=== PATIENT | female | born 1990 | race Caucasian/White ===

== ENCOUNTER 2021-05-18 06:01 | Day surgery (SDC) | payer OTHER ==
[~2021-05-18] VITALS: Ht 154.9 cm; Wt 85.0 kg
[~2021-05-18 06:01] MED LIST: ACETAMINOPHEN *IV* 1,000 MG IV ONE; GABAPENTIN 300 MG CAP PO ONE; LIDOCAINE 1% MDV 20ML VIAL SQ PRN; LR 1,000 ML IV ONE; OMEP40CA4 PO; SCOPOLAMINE 1MG TRANSDERMAL PATCH TOP ONE; ceFAZolin SOD 2 GM in IV 1 EA IV ONE
[2021-05-18 06:38] LABS: HEMATOCRIT 34.2 % (36.0-47.0); HEMOGLOBIN 10.8 g/dl (12.0-15.5); MEAN CORPUSCULAR HEMOGLOBIN 24.3 pg (27.0-33.0); MEAN CORPUSCULAR HGB CONC 31.6 g/dl (32.0-36.5); PLATELET COUNT, AUTOMATED 343 10^3/uL (150-450); RED BLOOD COUNT 4.44 10^6/uL (4.00-5.40); WHITE BLOOD COUNT 8.7 10^3/uL (4.0-10.0)
[2021-05-18 07:06] LABS: ALBUMIN 3.5 GM/DL (3.2-5.2); ALT/SGPT 19 U/L (12-78); BILIRUBIN,TOTAL 0.2 MG/DL (0.2-1.0); BLOOD UREA NITROGEN 15 MG/DL (7-18); CALCIUM LEVEL 8.8 MG/DL (8.5-10.1); CARBON DIOXIDE LEVEL 23 MEQ/L (21-32); CHLORIDE LEVEL 107 MEQ/L (98-107); CREATININE FOR GFR 0.66 MG/DL (0.55-1.30); GLOMERULAR FILTRATION RATE > 60.0 (>60); GLUCOSE, FASTING 107 MG/DL (70-100); POTASSIUM SERUM 4.2 MEQ/L (3.5-5.1); SODIUM LEVEL 136 MEQ/L (136-145); TOTAL PROTEIN 7.6 GM/DL (6.4-8.2)
[2021-05-18] MEDS ORDERED: LIDOCAINE W/EPINEPHRINE 1% 20ML VIAL As Ordered ONE (07:12)
[2021-05-18] MEDS ORDERED: ONDANSETRON 4MG/2ML VIAL As Ordered ONE (07:14)
[2021-05-18] MEDS ORDERED: propofoL 200 MG/20 ML VIAL As Ordered ONE (07:14)
[2021-05-18] MEDS ORDERED: METOCLOPRAMIDE INJ 10MG/2ML VIAL (J2765 PER 1) As Ordered ONE (07:14)
[2021-05-18] MEDS ORDERED: ROCURONIUM BROMIDE 50 MG/5 ML VIAL As Ordered ONE (07:14)
[2021-05-18] MEDS ORDERED: dexameTHASONE 4 MG/ML 1ML VIAL (J1100 PER 1MG) As Ordered ONE (07:14)
[2021-05-18] MEDS ORDERED: LIDOCAINE 2% 100MG/5ML SDV (FOR ANES.) As Ordered ONE (07:14)
[2021-05-18] MEDS ORDERED: MIDAZOLAM INJ 2MG/2ML VIAL (J2250 PER 1MG) As Ordered ONE (07:15)
[2021-05-18] MEDS ORDERED: fentaNYL 100 MCG/2 ML INJECTION (J3010) As Ordered ONE (07:15)
[2021-05-18] MEDS ORDERED: HYDROmorphone HCL 2 MG/ML 1ML VIAL (J1170) As Ordered ONE (08:31)
[2021-05-18] MEDS ORDERED: ACETAMINOPHEN 1000MG 100ML IV BTL (OFIRMEV) (J0131 PER 10MG) As Ordered ONE (09:02)
[2021-05-18] MEDS ORDERED: oxyCODONE 5MG TAB PO PRN ×2 (10:15→10:20)
[2021-05-18] MEDS ORDERED: fentaNYL 100 MCG/2 ML INJECTION (J3010) IV PRN (10:15)
[2021-05-18] MEDS ORDERED: ONDANSETRON 4MG/2ML VIAL IV PRN (10:15)
[2021-05-18] MEDS ORDERED: MEPERIDINE INJ 25 MG/ML VIAL (J2175) IV PRN (10:15)
[2021-05-18] MEDS ORDERED: METOCLOPRAMIDE INJ 10MG/2ML VIAL (J2765 PER 1) IV PRN (10:15)
[2021-05-18] MEDS ORDERED: LR 1,000 ML IV SCH (10:15)
--- NOTE | 2021-05-18 10:18 | ROOPDOC ---
[facility] Report Of Operation Report of Operation DATE OF PROCEDURE: 05/18/21 PREPROCEDURE DIAGNOSES: heavy menstrual bleeding, uterine prolapse, perineal body defect POSTPROCEDURE DIAGNOSES: same PROCEDURE PERFORMED: total vaginal hysterectomy, modified mccalls culdoplasty, cystoscopy, perineorrhoraphy SURGEON: Dre Lozoya DO PRIVATE ADVISOR: Mery Short MD ANESTHESIA: general ESTIMATED BLOOD LOSS: Approximately 100 mL. COMPLICATIONS: none REMARKS: none FINDINGS: normal external genitalia, normal uterus and cervix, uterine prolapse noted, vaginal hysterectomy performed, fallopian tubes were surgically truncated, fimbriae were unable to be visualized for resection, bilateral ureters with brisk flow following the procedure and bladder without trauma, preineal body defect appreciated, perineorrhoraphy performed SPECIMENS REMOVED: uterus and cervix PROCEDURE NOTE: The risks, benefits, and alternatives of the procedure were discussed and written consent obtained. Pre-operative the patient received 2g ancef, scopolamine, gabapentin, and tylenol. She was taken to the OR and placed under general anesthesia. She was positioned in low lithotomy with the yellow fins and her arms out. The vagina and perineum were prepped and draped in a sterile fashion. A jiménez was placed in the bladder. A final time out was performed. A weighted speculum was placed and the cervix grasped with Nunez tenaculum. The cervicovaginal junction was injected circumferentially with 1% lidocaine with epinephrine. The junction was then incised with the bovie. The posterior vagina mucosal lip was elevated and the curved alexander scissors used to incise the posterior peritoneum. Intraabdominal entry was confirmed and no adhesions palpated. A duck bill speculum was placed. The anterior mucosal edge was elevated and attempt was made to enter the anterior peritoneum but it was too far posterior due to bladder prolapse. The bilateral uterosacral ligaments were grasped with koker clamps, cut, and tied with 0-vicryl. The bladder was then dissected further from the anterior uterus. The bilateral uterine arteries were then clamped, cauterized, and cut with the ligasure impact. The bilateral broad ligaments were also transected with the ligasure impact. The peritoneal reflection was then evident anteriorly and the Metzenbaum scissors were used to open the peritoneum and a retractor was placed. Intraabdominal entry was confirmed and there were no adhesions. The broad ligaments were further transsected followed by the bilateral uterosacral and uteroovarian ligaments with the ligasure. The uterus was removed. Small segments of fallopian tubes could be visualized on the specimen but the fimbriae were not visible. The ovaries were notably high and behind protruding bowel and visualization was difficult. Reinforcement figure of 8 stitches with 0-vicryl were placed on the bilateral side wall dissection sites for hemostasis. The surgical sites were hemostatic. A modified McCalls Culdoplasty was performed with 0-PDS with notable improvement in apical prolapse. A cystoscopy was performed and the bilateral ureters had brisk flow and there was no bladder trauma. The bladder was drained. The cuff mucosa was closed with 0-vicryl in a running fashion. Cystoscopy was repeated and had no changes. The bladder was drained. The cuff was palpated and had no defects. It was hemostatic. The perineal defect was identified and a elmer shaped area was clamped with Nanci clamps. The area was injected with 1% lidocaine with epinephrine for hydrodissection. The mucosa and perineal skin was removed via blunt dissection and with the Metzenbaum scissors. A crown stitch was performed to reapproximate the perineal body with good resulting support. Plication of the rectovaginal fascia was performed via 3x interrupted stitches with 0-vicryl. The mucosa and skin were then closed with 2-0 monocryl. The surgical site was hemostatic. The sponge, lap and needle counts were correct. There were no complications. The patient was transferred to recovery in stable condition. DRE LOZOYA DO May 18, 2021 10:18
[2021-05-18] MEDS ORDERED: IBUPROFEN 600MG TAB PO SCH (12:00)
[2021-05-18 12:50] VITALS: BP 117/66
[2021-05-18] MEDS ORDERED: KETOROLAC 60MG 2ML VIAL As Ordered ONE (12:53)
[2021-05-18] MEDS ORDERED: SUGAMMADEX SODIUM 500 MG/5 ML VIAL (BRIDION) As Ordered ONE (12:53)
[2021-05-18] MEDS ORDERED: ACETAMINOPHEN 500 MG TAB PO SCH (15:00)
== END 2021-05-18 13:00 | disposition home or self-care (01) ==
LOC: M SDC 06:01
PROVIDERS: ATTEND Obstetrics & Gynecology
DX: N85.00 Endometrial hyperplasia, unspecified (principal); Z88.2 Allergy status to sulfonamides; Z91.040 Latex allergy status; Z79.899 Other long term (current) drug therapy
CPT/HCPCS: 36415; 57260; 58260; 80053; 85027; 86850; 86900; 86901; 88307; J0131; J0690; J1100; J1170; J1885; J2250; J2405; J2765; J3010

== ENCOUNTER 2022-03-01 22:28 | Emergency (ER) | payer OTHER ==
[~2022-03-01] VITALS: Ht 154.9 cm; Wt 78.5 kg
[~2022-03-01 22:28] MED LIST changes: -ACETAMINOPHEN *IV* 1,000 MG IV ONE; +BENZ200C70 PO; -GABAPENTIN 300 MG CAP PO ONE; -LIDOCAINE 1% MDV 20ML VIAL SQ PRN; -LR 1,000 ML IV ONE; +ONDA4TAB6 PO; -SCOPOLAMINE 1MG TRANSDERMAL PATCH TOP ONE; -ceFAZolin SOD 2 GM in IV 1 EA IV ONE
[2022-03-02] MEDS ORDERED: NS 1,000 ML IV ONE ×2 (05:45→08:05)
[2022-03-02 06:28] LABS: BASO % 0.3 % (0.0-1.0); EOS # 0.2 10^3/uL (0.0-0.5); EOS % 2.7 % (0.0-3.0); HEMATOCRIT 39.4 % (36.0-47.0); HEMOGLOBIN 12.6 g/dl (12.0-15.5); LYMPH # 2.2 10^3/uL (1.5-5.0); LYMPH % 37.5 % (24.0-44.0); MEAN CORPUSCULAR VOLUME 78.2 fl (80.0-96.0); MONO # 0.5 10^3/uL (0.0-0.8); MONO % 9.1 % (2.0-8.0); NEUTROPHILS # 2.9 10^3/uL (1.5-8.5); NEUTROPHILS % 50.2 % (36.0-66.0); PLATELET COUNT, AUTOMATED 273 10^3/uL (150-450); RED BLOOD COUNT 5.04 10^6/uL (4.00-5.40); WHITE BLOOD COUNT 5.8 10^3/uL (4.0-10.0)
[2022-03-02 07:04] LABS: ALBUMIN 3.7 GM/DL (3.2-5.2); ALT/SGPT 37 U/L (12-78); BILIRUBIN,TOTAL 0.3 MG/DL (0.2-1.0); BLOOD UREA NITROGEN 16 MG/DL (7-18); CALCIUM LEVEL 8.4 MG/DL (8.5-10.1); CARBON DIOXIDE LEVEL 23 MEQ/L (21-32); CHLORIDE LEVEL 108 MEQ/L (98-107); CREATININE FOR GFR 0.56 MG/DL (0.55-1.30); GLOMERULAR FILTRATION RATE > 60.0 (>60); GLUCOSE, FASTING 74 MG/DL (70-100); POTASSIUM SERUM 3.9 MEQ/L (3.5-5.1); SODIUM LEVEL 140 MEQ/L (136-145); TOTAL PROTEIN 7.4 GM/DL (6.4-8.2)
[2022-03-02 10:11] LABS: MYOGLOBIN 30 NG/ML (13-71)
[2022-03-02 12:00] VITALS: BP 116/63
== END 2022-03-02 12:14 | disposition home or self-care (01) ==
LOC: M ED 22:28
DX: R31.9 Hematuria, unspecified (principal); R10.9 Unspecified abdominal pain; Z98.84 Bariatric surgery status; Z88.1 Allergy status to other antibiotic agents; Z88.2 Allergy status to sulfonamides; Z91.040 Latex allergy status